=== PATIENT | female | born 1970 | race Caucasian/White ===

== ENCOUNTER 2020-04-07 11:53 | Emergency (ER) | payer OTHER, SELFPAY ==
[2020-04-07] VITALS (17 sets, daily range): BP systolic 138–175; BP diastolic 86–116; PULSE 86–107; RESP 14–41; TEMP 36.6; O2SAT 99–100
--- NOTE | 2020-04-07 12:13 | ECG_ITS ---
Measurements Intervals [place] Rate: 102 P: -13 [place]: 147 QRS: 2 QRSD: 88 T: 3 QT: 345 QTc: 451 Interpretive Statements SINUS TACHYCARDIA DELAYED PRECORDIAL R/S TRANSITION BORDERLINE T WAVE ABNORMALITY- INFERIOR LEADS BASELINE ARTIFACT- I, II, AVR BORDERLINE ECG Electronically Signed On 04-07-2020 14:04:54 [employer] by You Ndiaye D.O.
--- NOTE | 2020-04-07 12:26 | ED.OVERDOSE ---
HPI - Overdose General Chief Complaint: Overdose <Renato Sherman MD - Last Filed: 04/08/20 14:40> Stated Complaint: OD <Renato Sherman MD - Last Filed: 04/08/20 14:40> Time Seen by Provider: 04/07/20 12:06 <Renato Sherman MD - Last Filed: 04/08/20 14:40> History of Present Illness HPI Narrative: 49 yo female presents to the ED for an intentional overdose. She reports that she was in an argument with her and she just wanted the argument to end and go to sleep. She says that she took a handful of benadryl. She is not able to further quantify. She reports mild intermittent nausea since that time. She denies any other symptoms. She denies trying to harm herself. <Renato Sherman MD - Last Filed: 04/08/20 14:40> Related Data Allergies/Adverse Reactions: Allergies Allergy/AdvReac Type Severity Reaction Status Date / Time Penicillins Allergy Mild Unknown Verified 04/07/20 18:50 ampicillin Allergy Unknown Unknown Verified 04/07/20 18:50 codeine Allergy Unknown Unknown Verified 04/07/20 18:50 <Renato Sherman MD - Last Filed: 04/08/20 14:40> Review of Systems Review of Systems: All systems reviewed & are unremarkable except as noted in HPI and below <Renato Sherman MD - Last Filed: 04/08/20 14:40> Constitutional: Constitutional: Denies fever(s) <Renato Sherman MD - Last Filed: 04/08/20 14:40> Eyes: Eyes: Reports no additional eye complaints <Renato Sherman MD - Last Filed: 04/08/20 14:40> ENT: Denies dizziness <Renato Sherman MD - Last Filed: 04/08/20 14:40> Cardiovascular: Cardiovascular: Denies chest pain <Renato Sherman MD - Last Filed: 04/08/20 14:40> Respiratory: Respiratory: Denies dyspnea <Renato Sherman MD - Last Filed: 04/08/20 14:40> Gastrointestinal: Gastrointestinal: Denies abdominal pain and Reports nausea <Renato Sherman MD - Last Filed: 04/08/20 14:40> Genitourinary: Genitourinary: Reports no additional female genitourinary complaints <Renato Sherman MD - Last Filed: 04/08/20 14:40> Neurologic: Denies confusion and Denies weakness <Renato Sherman MD - Last Filed: 04/08/20 14:40> Psychiatric: Psychiatric: Denies homicidal ideation and Denies suicidal ideation <Renato Sherman MD - Last Filed: 04/08/20 14:40> [facility] Past Medical History Medical History: Medical History Healthy female adult <Renato Shreman MD - Last Filed: 04/08/20 14:40> Family History Family History: Family History Grandparent Family history of kidney disease Carcinoma of colon Family history of coronary artery disease Father Hypertension Other Family history of cardiovascular disease <Renato Sherman MD - Last Filed: 04/08/20 14:40> Social History Social History: Social History Smoking status: Current every day smoker Second hand tobacco smoke exposure: Yes Alcohol intake: current <Renato Sherman MD - Last Filed: 04/08/20 14:40> Exam Const: General: healthy appearing, no acute distress and alert <Renato Sherman MD - Last Filed: 04/08/20 14:40> Orientation/consciousness: patient oriented x3 <Renato Sherman MD - Last Filed: 04/08/20 14:40> HENMT: Head: normal to inspection <Renato Sherman MD - Last Filed: 04/08/20 14:40> Eyes: Pupils: Equal, round and reactive pupils present <Renato Sherman MD - Last Filed: 04/08/20 14:40> EOM: EOMs intact bilaterally <Renato Sherman MD - Last Filed: 04/08/20 14:40> Neck: Neck: normal visual inspection and no lymphadenopathy <Renato Sherman MD - Last Filed: 04/08/20 14:40> Chest: Chest palpation & inspection: no tenderness <Renato Sherman MD - Last Filed: 04/08/20 14:40> Resp: Effort & Inspection: normal respiratory e
--- NOTE | 2020-04-07 12:40 | PC.NURSE ---
SPOKE WITH GREYSON AT [facility] POISON CONTROL WHO WANTS US TO DO EKG, LABS, CARDIAC MONITORING. 10MG/KG UP TO 700MG MAX FOR TOXICITY. SEIZURE PRECAUTIONS ALSO RECOMMENDED.
[2020-04-07 13:05] LABS: Basophils Percent Auto 0.3 % (0.2-1.2); Eosinophils Percent Auto 0.1 % (0-4.4); Hematocrit 39.8 % (37.0-47.0); Hemoglobin 13.3 g/dL (12.0-15.0); Immature Granulocyte Absolute 0.02 K/mm3 (0.00-0.031); Immature Granulocyte Percent A 0.2 % (0-0.5); Lymphocytes Absolute Auto 1.56 K/mm3 (0.9-3.2); Mean Corpuscular HGB Conc 33.4 g/dl (32-36); Mean Corpuscular Hemoglobin 30.7 pg (26-34); Mean Corpuscular Volume 91.9 fl (80-100); Mean Platelet Volume 10.7 fl (7.4-10.4); Monocytes Absolute Auto 0.7 K/mm3 (0.1-0.6); Monocytes Percent Auto 7.5 % (2.6-8.5); Neutrophils Absolute Auto 6.4 K/mm3 (1.3-6.7); Neutrophils Percent Auto 73.9 % (45.5-73.1); Platelet Count Result 320 k/mm3 (150-375); Red Blood Count 4.33 M/mm3 (4.2-5.4); Red Cell Distribution Width 12.9 % (11.5-14.5); White Blood Count 8.7 K/mm3 (4.5-10.0)
[2020-04-07 13:09] LABS: Add Urine Microscopic? YES; Appearance Urine Clear (Clear); Bacteria Urine Trace /hpf; Bilirubin Urine Negative (Negative); Blood Urine 2+ (Negative); Color Urine Yellow (Yellow); Glucose Urine UA Negative (Negative); Ketones Urine Negative (Negative); Leukocyte Esterase Ur Trace LEU/UL (Negative); Mucus Urine Rare /lpf; Nitrate Urine Negative (Negative); Protein Urine 1+ mg/dL (Negative); Specific Grav Ur 1.017 (1.001-1.035); Squamous Epithelial Cell Urine Few /hpf (Few); Urobilinogen Urine Negative mg/dL (<2.0); WBC Urine 31-50 /hpf
[2020-04-07] MEDS: SODIUM CHLORIDE 0.9% IV 1,000 ML 999 ML IV CONT (13:10)
[2020-04-07] MEDS: LORazepam INJ (*CRX) 2 MG/ML VIAL 0.5 MG IV PUSH (13:10)
[2020-04-07 13:14] LABS: Acetaminophen < 10 ug/mL (10-30); Ethanol < 10 mg/dL (<10); Salicylate < 1.0 mg/dL (2-20)
[2020-04-07 13:16] LABS: Alanine Aminotransferase 6 U/L (4-35); Albumin Level 4.1 g/dL (3.5-5.1); Alkaline Phosphatase 62 U/L (38-126); Anion Gap 7 mmol/L (8-16); Aspartate Amino Transferase 24 U/L (14-36); Bilirubin,Total 0.7 mg/dL (0.2-1.3); Blood Urea Nitrogen 13 mg/dL (7-17); Carbon Dioxide 29 mmol/L (22-30); Chloride 102 mmol/L (98-107); Estimated CRCL calculation 80 ml/min; Estimated Glomerular Filt Rate > 60; Glucose 97 mg/dL (65-105); Potassium 3.6 mmol/L (3.4-5.0); Sodium 138 mmol/L (137-145)
[2020-04-07 13:21] LABS: Barbiturate Screen Urine Negative (Negative); Benzodiazepines Screen Urine Negative (Negative)
[2020-04-07 13:34] LABS: Cannabinoid Screen Urine Negative (Negative); Cocaine Screen Urine Negative (Negative); Methadone Screen Urine Negative (Negative); Opiate Screen Urine Negative (Negative); Phencyclidine Screen Urine Negative (Negative)
[2020-04-07 13:59] LABS: Amphetamine Screen Urine Positive (Negative)
--- NOTE | 2020-04-07 14:49 | PC.NURSE ---
POISON CONTROL CALLED FOR UPDATE OF PT.
--- NOTE | 2020-04-07 18:55 | PC.NURSE ---
PT NOTED TO WALK OUT OF ROOM INTO WAITING ROOM. I FOLLOWED PT OUT AND REDIRECTED HER TO THE ROOM. SHE STATED THAT WE WERE HOLDING HER AGAINST HER RIGHTS. I IMFORMED HER THAT DUE TO TAKING THE MEDS SHE STILL NEEDS TO BE EVALUATED BY CRISIS PRIOR TO HER LEAVING. SHE SAID THAT SOMEONE TOLD HER THAT SHE WAS MEDICALLY CLEARED. SHE WAS INFORMED THAT WAS POISON CONTROL AND CRISIS STILL NEEDS TO FORMALLY EVALUATE HER. UNDERSTANDING WAS VERBALIZED AND PT REMAINS COOPERATIVE. AWAITING CRISIS WHO IS IN DEPARTMENT CURRENTLY SEEING OTHER PATIENTS BUT WILL SEE HER REJI
== END 2020-04-07 21:30 | disposition home or self-care (01) ==
PROVIDERS: Emergency Medicine; Emergency Provider Emergency Medicine; PCP Emergency Medicine
DX: F32.9 Major depressive disorder, single episode, unspecified (principal)
CPT/HCPCS: 36415; 80053; 80307; 81001; 81025; 84443; 85025; 87077; 87086; 87088; 93005; 96361; 96374; 99284; J2060; J7030

== ENCOUNTER 2020-04-26 05:28 | Emergency (ER) | payer OTHER, SELFPAY ==
[2020-04-26 05:34] VITALS: BP 163/95; PULSE 67; RESP 16; TEMP 36.1; O2SAT 99
--- NOTE | 2020-04-26 06:17 | ECG_ITS ---
Measurements Intervals [place] Rate: 68 P: -29 SC: 141 QRS: 37 QRSD: 96 T: 31 QT: 396 QTc: 423 Interpretive Statements SINUS OR ECTOPIC ATRIAL RHYTHM DELAYED PRECORDIAL R/S TRANSITION BASELINE ARTIFACT- I, III, AVR, AVL, AVF, V2 BORDERLINE ECG Electronically Signed On 04-26-2020 7:12:39 CDT by You Ndiaye D.O.
--- NOTE | 2020-04-26 06:21 | ED.GENADULT ---
HPI - General Adult General Chief complaint: Dizziness Stated complaint: DIZZINESS X3D Time Seen by Provider: 04/26/20 06:08 History of Present Illness HPI narrative: Patient is a 49-year-old female who presents to the emergency department with chief complaint of dizziness. Patient reports for the last 3 days she has been having episodes where she has a rotational symptom in her head. Patient states is worse with movement and improved with rest. Patient reports she does have 2 teeth in her upper molars that are loose and also are fractured. Patient reports she has not seen a dentist in some time. The patient also reports that yesterday she had an episode of abdominal discomfort which she described as all over her abdomen but subsequently has improved that she is not having pain in her abdomen at this point. Patient denies nausea vomiting denies fever denies chills denies diarrhea Related Data Allergies Allergy/AdvReac Type Severity Reaction Status Date / Time Penicillins Allergy Mild Unknown Verified 04/26/20 05:37 ampicillin Allergy Unknown Unknown Verified 04/26/20 05:37 codeine Allergy Unknown Unknown Verified 04/26/20 05:37 Review of Systems Review of Systems: Narrative: A 10 system review of systems was completed on the patient and is negative except for what is stated in the HPI. Nursing and ancillary documentation was reviewed. [facility] Past Medical History Medical History Healthy female adult Family History Family History Grandparent Family history of kidney disease Carcinoma of colon Family history of coronary artery disease Father Hypertension Other Family history of cardiovascular disease Social History Social History Smoking status: Current every day smoker Second hand tobacco smoke exposure: Yes Alcohol intake: current Exam Narrative: Exam Narrative: GENERAL: Well-appearing, well-nourished, and in no acute distress. HEAD: Normocephalic, atraumatic. EYES: PERRLA and EOMI. ENT: Nares clear, no rhinorrhea or epistaxis. Mucous membranes moist. Oropharynx there is gross decay of 2 upper molars on the left NECK: Supple. CHEST: Clear to auscultation. No respiratory distress. HEART: Regular rate and rhythm. No murmur heard. Normal peripheral pulses. ABDOMEN: Soft, nontender, nondistended, normal active bowel sounds. EXTREMITIES: Normal range of motion. No edema. SKIN: Warm, dry, no rash. NEURO: No focal deficits. Alert and oriented x3. PSYCH: Normal mood and affect. Course Course Emergency Course: EKG is sinus rhythm rate of [address] elevation no ST depression Vital Signs Vital signs: Vital Signs Temperature 36.1 C L 04/26/20 05:34 Pulse Rate 67 04/26/20 05:34 Respiratory Rate 16 04/26/20 05:34 Blood Pressure 163/95 H 04/26/20 05:34 Pulse Oximetry 99 04/26/20 05:34 Temperature 36.1 C L 04/26/20 05:34 Pulse Rate 73 04/26/20 06:43 Respiratory Rate 16 04/26/20 05:34 Blood Pressure 186/99 H 04/26/20 06:43 Pulse Oximetry 99 04/26/20 05:34 Medical Decision Making Vital Signs Vital Signs: Vital Signs Temperature 36.1 C L 04/26/20 05:34 Pulse Rate 67 04/26/20 05:34 Respiratory Rate 16 04/26/20 05:34 Blood Pressure 163/95 H 04/26/20 05:34 Pulse Oximetry 99 04/26/20 05:34 Temperature 36.1 C L 04/26/20 05:34 Pulse Rate 73 04/26/20 06:43 Respiratory Rate 16 04/26/20 05:34 Blood Pressure 186/99 H 04/26/20 06:43 Pulse Oximetry 99 04/26/20 05:34 Lab Data Result diagrams: 04/26/20 06:26 04/26/20 06:26 Labs: Lab Results 04/26/20 04/26/20 04/26/20 Range/Units 06:26 06:26 06:26 WBC 7.3 (4.5-10.0) K/mm3 RBC 4.82 (4.2-5.4) M/mm3 Hgb 14.9 (12.0-15.0) g/dL Hct 45.5 (37.0-47.0) % MCV 94
[2020-04-26] MEDS: SODIUM CHLORIDE 0.9% IV 1,000 ML 999 ML IV CONT (06:33)
[2020-04-26] MEDS: MECLIZINE HCL 25 MG TABLET PO (06:34)
[2020-04-26] MEDS: ONDANSETRON INJ 4 MG/2 ML VIAL IV PUSH (06:34)
[2020-04-26 06:39] VITALS: BP 175/94; PULSE 66
[2020-04-26 06:41] VITALS: BP 187/101; PULSE 67
[2020-04-26 06:43] VITALS: BP 186/99; PULSE 73
[2020-04-26 06:47] LABS: Basophils Absolute Auto 0.1 K/mm3 (0.0-0.1); Basophils Percent Auto 0.7 % (0.2-1.2); Eosinophils Absolute Auto 0.1 K/mm3 (0-0.3); Eosinophils Percent Auto 1.6 % (0-4.4); Hematocrit 45.5 % (37.0-47.0); Hemoglobin 14.9 g/dL (12.0-15.0); Immature Granulocyte Absolute 0.02 K/mm3 (0.00-0.031); Immature Granulocyte Percent A 0.3 % (0-0.5); Lymphocytes Absolute Auto 2.26 K/mm3 (0.9-3.2); Lymphocytes Percent Auto 30.8 % (18.3-44.2); Mean Corpuscular HGB Conc 32.7 g/dl (32-36); Mean Corpuscular Hemoglobin 30.9 pg (26-34); Mean Corpuscular Volume 94.4 fl (80-100); Mean Platelet Volume 11.1 fl (7.4-10.4); Monocytes Absolute Auto 0.6 K/mm3 (0.1-0.6); Monocytes Percent Auto 8.2 % (2.6-8.5); Neutrophils Absolute Auto 4.3 K/mm3 (1.3-6.7); Neutrophils Percent Auto 58.4 % (45.5-73.1); Platelet Count Result 307 k/mm3 (150-375); Red Blood Count 4.82 M/mm3 (4.2-5.4); Red Cell Distribution Width 12.6 % (11.5-14.5); White Blood Count 7.3 K/mm3 (4.5-10.0)
[2020-04-26 06:50] LABS: Lactic Acid Reflex 0.9 mmol/L (0.7-2.1)
[2020-04-26 07:02] LABS: Alanine Aminotransferase 7 U/L (4-35); Albumin Level 4.1 g/dL (3.5-5.1); Alkaline Phosphatase 60 U/L (38-126); Anion Gap 4 mmol/L (8-16); Aspartate Amino Transferase 19 U/L (14-36); Bilirubin,Total 0.5 mg/dL (0.2-1.3); Blood Urea Nitrogen 20 mg/dL (7-17); Carbon Dioxide 35 mmol/L (22-30); Chloride 101 mmol/L (98-107); Estimated CRCL calculation 71 ml/min; Estimated Glomerular Filt Rate > 60; Glucose 107 mg/dL (65-105); Lipase 286 U/L (23-300); Potassium 3.9 mmol/L (3.4-5.0); Sodium 140 mmol/L (137-145)
[2020-04-26 07:09] LABS: Add Urine Microscopic? YES; Amorphous Sediment Urine Few; Appearance Urine Cloudy (Clear); Bilirubin Urine Negative (Negative); Blood Urine Negative (Negative); Color Urine Yellow (Yellow); Glucose Urine UA Negative (Negative); Ketones Urine Negative (Negative); Leukocyte Esterase Ur Negative LEU/UL (Negative); Mucus Urine Rare /lpf; Nitrate Urine Negative (Negative); Protein Urine Negative (Negative); RBC Urine 0-2 /hpf (0-2); Specific Grav Ur 1.011 (1.001-1.035); Squamous Epithelial Cell Urine Rare /hpf (Few); Urobilinogen Urine Negative mg/dL (<2.0)
--- NOTE | 2020-04-28 07:17 | PC.NURSE ---
Pt received 1000 ml of NS that was completed at 716 LATE ENTRY
== END 2020-04-26 07:23 | disposition home or self-care (01) ==
PROVIDERS: Emergency Provider Emergency Medicine; PCP Emergency Medicine
DX: H81.10 Benign paroxysmal vertigo, unspecified ear (principal); F17.200 Nicotine dependence, unspecified, uncomplicated; R94.31 Abnormal electrocardiogram [ECG] [EKG]
CPT/HCPCS: 80053; 81001; 83605; 83690; 85025; 93005; 96361; 96374; 99284; A9270; J2405; J7030

== ENCOUNTER 2020-06-06 12:56 | Emergency (ER) | payer OTHER, SELFPAY ==
--- NOTE | 2020-06-06 13:14 | ED.FEMALEGU ---
HPI - Female Genitourinary General Chief complaint: Urogenital-Female Stated complaint: vaginal odor/discharge Time Seen by Provider: 06/06/20 13:14 Source: patient and RN notes reviewed Mode of arrival: ambulatory Limitations: no limitations History of Present Illness HPI Narrative: 49-year-old female presents to the [facility] with complaints of abnormal vagina odor and white discharge. Patient reports that she has been on 2 rounds of antibiotics in the last couple months. And states she was called in a pill for yeast infection and it has not gotten any better. Has a history of bacterial vaginitis and states it feels exactly the same. Denies any chest pain or abdominal pain. No nausea vomiting or diarrhea. Denies any fevers. No urinary symptoms. Related Data Home Medications Medication Instructions Recorded Confirmed lisinopril 20 mg DAILY 06/06/20 06/06/20 sertraline 50 mg DAILY 06/06/20 06/06/20 Allergies Allergy/AdvReac Type Severity Reaction Status Date / Time Penicillins Allergy Mild Unknown Verified 04/26/20 05:37 ampicillin Allergy Unknown Unknown Verified 04/26/20 05:37 codeine Allergy Unknown Unknown Verified 04/26/20 05:37 Review of Systems Review of Systems: Narrative: CONSTITUTIONAL: Denies fever, chills, or sweats. CARDIOVASCULAR: Denies chest pain, palpitations, or edema. RESPIRATORY: Denies cough or dyspnea. GASTROINTESTINAL: Denies abdominal pain, nausea, vomiting, or diarrhea. GENITOURINARY: Denies dysuria or hematuria. White vaginal discharge. SKIN: Denies rash or itching. MUSCULOSKELETAL: Denies back pain, joint pain, or myalgia. NEUROLOGIC: Denies headache, numbness, or weakness. PSYCHIATRIC: Denies anxiety or depression. All other systems reviewed are negative, except as documented in HPI. [facility] Past Medical History Medical History Healthy female adult Family History Family History Grandparent Family history of kidney disease Carcinoma of colon Family history of coronary artery disease Father Hypertension Other Family history of cardiovascular disease Social History Social History Smoking status: Current every day smoker Second hand tobacco smoke exposure: Yes Alcohol intake: current Comments At the time of my signature, I reviewed and agree with the nursing past medical, surgical, social, and family history. There is no relevant family history pertinent to the patient complaint. Exam Narrative: Exam Narrative: GENERAL: This is a well-nourished, well-developed patient, in no apparent distress. HEAD: normocephalic, atraumatic. NECK: Neck supple, non-tender without lymphadenopathy CARDIOVASCULAR: Regular rate and rhythm without murmurs, gallops, or rubs. RESPIRATORY: Clear to auscultation. Breath sounds equal bilaterally. No wheezes, rales, or rhonchi. GASTROINTESTINAL: Abdomen soft, non-tender, nondistended. Bowel sounds are active. No hepato-splenomegaly, or palpable masses. No guarding. SKIN: warm, Dry, intact with no suspicious lesions or rash, good texture and turgor. NEURO: awake, alert, and oriented to person, place and time. There were no obvious focal neurologic abnormalities. EXTREMITIES: No joint tenderness, effusion, or edema noted. BACK: Nontender without deformity. No CVA tenderness. Course Course Emergency Course: Patient is a very good historian. Has a history of bacterial vaginitis. Has been on 2 rounds of antibiotics in the last couple of months. Has treated for yeast infection states is not clearing up. Patient reports that it feels like bacterial vaginitis. Declined a vaginal exam at this time. Encourage patient to follow-up with her [employer] provider due to the fact that she has not had a period in 2 months, patient has a history of a tubal ligation. Vital Signs Vital signs: Vital Signs Te
[2020-06-06 13:28] VITALS: BP 110/69; PULSE 92; RESP 16; TEMP 37; O2SAT 100
== END 2020-06-06 13:33 | disposition home or self-care (01) ==
PROVIDERS: Emergency Provider Nurse Practitioner; PCP Emergency Medicine
DX: N76.0 Acute vaginitis (principal); F17.200 Nicotine dependence, unspecified, uncomplicated
CPT/HCPCS: 99211; G0463

== ENCOUNTER 2020-06-16 18:16 | Emergency (ER) | payer OTHER, SELFPAY ==
--- NOTE | 2020-06-16 18:38 | ED.FEMALEGU ---
HPI - Female Genitourinary General Chief complaint: Urogenital-Female Stated complaint: uti Time Seen by Provider: 06/16/20 18:38 Source: patient and RN notes reviewed Mode of arrival: ambulatory Limitations: no limitations History of Present Illness HPI Narrative: 49-year-old female presents to the [facility] with complaints of vaginal discharge. Patient was seen over a week ago and treated for bacterial vaginitis. Prior to that patient had been on oral antibiotics and treated for yeast infection. Patient states she is doing a little better but still having some abnormal discharge and burning. Now is concerned for an STD. Denies any abdominal pain or chest pain. No nausea vomiting or diarrhea. Related Data Home Medications Medication Instructions Recorded Confirmed lisinopril 20 mg DAILY 06/06/20 06/16/20 sertraline 50 mg DAILY 06/06/20 06/16/20 Allergies Allergy/AdvReac Type Severity Reaction Status Date / Time Penicillins Allergy Mild Unknown Verified 06/16/20 18:56 ampicillin Allergy Unknown Unknown Verified 06/16/20 18:56 codeine Allergy Unknown Unknown Verified 06/16/20 18:56 Review of Systems Review of Systems: Narrative: CONSTITUTIONAL: Denies fever, chills, or sweats. EYES: Denies visual changes, redness, or discharge. ENT: Denies rhinorrhea, congestion, sore throat, or otalgia. CARDIOVASCULAR: Denies chest pain, palpitations, or edema. RESPIRATORY: Denies cough or dyspnea. GASTROINTESTINAL: Denies abdominal pain, nausea, vomiting, or diarrhea. GENITOURINARY: Denies dysuria or hematuria. Vaginal discharge SKIN: Denies rash or itching. MUSCULOSKELETAL: Denies back pain, joint pain, or myalgia. NEUROLOGIC: Denies headache, numbness, or weakness. PSYCHIATRIC: Denies anxiety or depression. All other systems reviewed are negative, except as documented in HPI. [facility] Past Medical History Medical History Healthy female adult Family History Family History Grandparent Family history of kidney disease Carcinoma of colon Family history of coronary artery disease Father Hypertension Other Family history of cardiovascular disease Social History Social History Smoking status: Current every day smoker Second hand tobacco smoke exposure: Yes Alcohol intake: current Gender identity (if verbalized by the patient): Female Comments At the time of my signature, I reviewed and agree with the nursing past medical, surgical, social, and family history. There is no relevant family history pertinent to the patient complaint. Exam Narrative: Exam Narrative: GENERAL: This is a well-nourished, well-developed patient, in no apparent distress. HEAD: normocephalic, atraumatic. EYES: PERRL. Sclera clear/white. Vision is grossly intact. EARS: External ears normal, auditory canals clear and without drainage, TMs normal without perforation. Hearing grossly intact. NOSE: External nose normal with no obvious nasal discharge, nares without redness, no rhinorrhea. THROAT: Mucous membranes moist, posterior pharynx clear. NECK: Neck supple, non-tender without lymphadenopathy, masses or thyromegaly. CARDIOVASCULAR: Regular rate and rhythm without murmurs, gallops, or rubs. RESPIRATORY: Clear to auscultation. Breath sounds equal bilaterally. No wheezes, rales, or rhonchi. GASTROINTESTINAL: Abdomen soft, non-tender, nondistended. SKIN: warm, Dry, intact with no suspicious lesions or rash, good texture and turgor. NEURO: awake, alert, and oriented to person, place and time. There were no obvious focal neurologic abnormalities. EXTREMITIES: No joint tenderness, effusion, or edema noted. BACK: Nontender without deformity. : General: Yes no CVA tenderness External Female Exam: normal external appearance Speculum Exam - Vagina: abnormal appearance of the vagina, abnormal vaginal di
[2020-06-16 18:44] VITALS: BP 147/77; PULSE 108; RESP 16; TEMP 36.9; O2SAT 99
== END 2020-06-16 19:22 | disposition home or self-care (01) ==
PROVIDERS: Emergency Provider Nurse Practitioner; PCP Emergency Medicine
DX: N89.8 Other specified noninflammatory disorders of vagina (principal); F17.200 Nicotine dependence, unspecified, uncomplicated
CPT/HCPCS: 87070; 87077; 87491; 87591; 87661; 99214; G0463

== ENCOUNTER 2021-01-16 12:34 | Emergency (ER) | payer OTHER, SELFPAY ==
[2021-01-16 12:39] VITALS: BP 142/90; PULSE 79; RESP 16; TEMP 36.8; O2SAT 99
--- NOTE | 2021-01-16 13:03 | ED.GENADULT ---
HPI - General Adult General Chief complaint: Dental/Oral Stated complaint: BUMP ON GUMS Source: patient Mode of arrival: ambulatory Limitations: no limitations History of Present Illness HPI narrative: 50 y/o female. PMHx: Non contributory. Presents to [facility] today with acute complaints of RT lower dental pain, infection, worsening > >the past 3 days. She reports 'throbbing' pain, refractory to OTC remedies, and now has developed a bump on her gumline. No fever. No dental or oral trauma. She is not currently established with Dentistry. No additional acute c/o illness upon PE. Related Data Allergies Allergy/AdvReac Type Severity Reaction Status Date / Time Penicillins Allergy Mild Unknown Verified 01/16/21 12:38 ampicillin Allergy Unknown Unknown Verified 01/16/21 12:38 codeine Allergy Unknown Unknown Verified 01/16/21 12:38 Review of Systems Review of Systems: CONSTITUTIONAL: Denies fever, chills, sweats. EYES: Denies visual changes, redness, discharge. ENT: Denies rhinorrhea, congestion, sore throat, otalgia. Positive Dental pain. CARDIOVASCULAR: Denies chest pain, palpitations, edema. RESPIRATORY: Denies dyspnea, wheezing, cough GASTROINTESTINAL: Denies abdominal pain, nausea, vomiting, diarrhea. GENITOURINARY: Denies dysuria, hematuria, abnormal discharge SKIN: Denies rash or itching. MUSCULOSKELETAL: Denies acute back pain, joint pain, or myalgia. NEUROLOGIC: Denies numbness, or focal weakness. PSYCHIATRIC: Denies anxiety or depression. All systems reviewed & are unremarkable except as noted in HPI and below PMFSH Past Medical History Medical History Healthy female adult Family History Family History Grandparent Family history of kidney disease Carcinoma of colon Family history of coronary artery disease Father Hypertension Other Family history of cardiovascular disease Social History Social History Smoking status: Current every day smoker Second hand tobacco smoke exposure: Yes Alcohol intake: current Gender identity (if verbalized by the patient): Female Exam Narrative: GENERAL: This is a well-nourished, well-developed adult, in no apparent distress. HEAD: normocephalic, atraumatic. EYES: PERRL. Sclera clear/white. EARS: External ears normal, auditory canals clear and without drainage, TMs normal. NOSE: External nose normal. Positive Rhinorrhea, no obstruction, nares patent. MOUTH: With mild soft tissue swelling surrounding RT lower molar #31. No obvious fluctuance to site. There is dental decay. THROAT: Mucous membranes moist, posterior pharynx clear. No exudates. NECK: Neck supple, non-tender without lymphadenopathy, masses or thyromegaly. CARDIOVASCULAR: Regular rate and rhythm without murmurs, gallops, or rubs. RESPIRATORY: Clear to auscultation. Breath sounds equal bilaterally. No wheezes, rales, or rhonchi. GASTROINTESTINAL: Abdomen soft, non-tender, nondistended. Bowel sounds are active. No guarding. SKIN: warm, intact with no suspicious lesions or rash, good texture and turgor. NEURO: Alert, active, and age appropriate. No focal neurologic deficits. Course Vital Signs Vital signs: Vital Signs Temperature 36.8 C 01/16/21 12:39 Pulse Rate 79 01/16/21 12:39 Respiratory Rate 16 01/16/21 12:39 Blood Pressure 142/90 H 01/16/21 12:39 Pulse Oximetry 99 01/16/21 12:39 Temperature 36.8 C 01/16/21 12:39 Pulse Rate 79 01/16/21 12:39 Respiratory Rate 16 01/16/21 12:39 Blood Pressure 142/90 H 01/16/21 12:39 Pulse Oximetry 99 01/16/21 12:39 Medical Decision Making [facility] Narrative Medical decision making narrative: -Dental infection, no obvious abscess or fluctuance. -No trauma. -ATB as directed, NSAID PRN. Short course [place] for moderate to sever
== END 2021-01-16 13:09 | disposition home or self-care (01) ==
PROVIDERS: Emergency Provider Nurse Practitioner Adult Health
DX: K02.9 Dental caries, unspecified (principal); F17.200 Nicotine dependence, unspecified, uncomplicated
CPT/HCPCS: 99213; G0463

== ENCOUNTER 2021-04-02 12:01 | Emergency (ER) | payer OTHER, SELFPAY ==
[2021-04-02 12:10] VITALS: BP 150/95; PULSE 93; RESP 16; TEMP 36.2; O2SAT 100
--- NOTE | 2021-04-02 12:10 | ED.FEMALEGU ---
HPI - Female Genitourinary General Chief complaint: Urogenital-Female Stated complaint: Urinary pain Source: patient and RN notes reviewed Mode of arrival: ambulatory Limitations: no limitations History of Present Illness HPI Narrative: 50 y/o female presented for c/o white vaginal discharge worsening over the past 2 weeks. States it is worse after intercourse. Denies significant itching or odor. Denies concern for STD. Denies urinary frequency, dysuria, urgency, hematuria, abdominal pain, CVA tenderness. No recent abx. Endorses hx yeast infections and BV. Related Data Allergies Allergy/AdvReac Type Severity Reaction Status Date / Time Penicillins Allergy Mild Unknown Verified 04/02/21 12:10 ampicillin Allergy Unknown Unknown Verified 04/02/21 12:10 codeine Allergy Unknown Unknown Verified 04/02/21 12:10 Review of Systems Review of Systems: CONSTITUTIONAL: Denies body aches, fever, chills, or sweats. CARDIOVASCULAR: Denies chest pain, palpitations, or edema. RESPIRATORY: Denies cough or dyspnea. GASTROINTESTINAL: Denies abdominal pain, nausea, vomiting, or diarrhea. GENITOURINARY: endorses white vaginal discharge, denies itching, dysuria, frequency, urgency, hematuria, flank pain SKIN: Denies rash, itching, or wounds. MUSCULOSKELETAL: Denies back pain or myalgia. [facility] Past Medical History Medical History Healthy female adult Family History Family History Grandparent Family history of kidney disease Carcinoma of colon Family history of coronary artery disease Father Hypertension Other Family history of cardiovascular disease Social History Social History Smoking status: Current every day smoker Second hand tobacco smoke exposure: Yes Alcohol intake: current Gender identity (if verbalized by the patient): Female Comments At time of signature, I have reviewed and agree with nursing past medical, surgical, social and family history unless otherwise noted. Please see nursing chart for further information. There is no relevant family history pertinent to the presenting complaint Exam Narrative: GENERAL: Well-appearing and in no acute distress. HEAD: Normocephalic EYES: EOMI. . ENT: Mucous membranes pink and moist. NECK: Normal AROM. Supple. CHEST: No respiratory distress. Clear to auscultation. HEART: Regular rate and rhythm. ABDOMEN: Soft, nontender, nondistended, normal active bowel sounds. No CVA tenderness MUSCULOSKELETAL: No bony tenderness. SKIN: Warm, dry, no rash. NEURO: No focal deficits. Alert and oriented x3. Gait steady. PSYCH: Normal affect. No signs of depression or anxiety. Course Course Emergency Course: Rx for fluconazole as yeast infection is suspected. 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 Rx for boyfriend given for fluconazole, who accompanied pt. Patient is aware of diagnosis, understands and agrees to treatment plan. Anticipatory guidance given. Patient agrees to follow-up as directed and is aware of reasons to seek care at the emergency department. Portions of this record may have been created with voice recognition software Level of Care: Express Care Visit Vital Signs Vital signs: Vital Signs Temperature 97.1 F L 04/02/21 12:10 Pulse Rate 93 04/02/21 12:10 Respiratory Rate 16 04/02/21 12:10 Blood Pressure 150/95 H 04/02/21 12:10 Pulse Oximetry 100 04/02/21 12:10 Temperature 97.1 F L 04/02/21 12:10 Pulse Rate 93 04/02/21 12:10 Respiratory Rate 16 04/02/21 12:10 Blood Pressure 150/95 H 04/02/21 12:10 Pulse Oximetry 100 04/02/21 12:10 Reviewed MDM - Female Genitourinary Differential Diagnosis Differential diagnosis: Likely urinary tract infection, bacterial vaginosis, cervicitis and va
== END 2021-04-02 12:36 | disposition home or self-care (01) ==
PROVIDERS: Emergency Provider Nurse Practitioner Family
DX: N89.8 Other specified noninflammatory disorders of vagina (principal); F17.200 Nicotine dependence, unspecified, uncomplicated
CPT/HCPCS: 99213; G0463

== ENCOUNTER 2022-01-25 03:59 | Emergency (ER) | payer OTHER, MEDICAID, SELFPAY ==
[2022-01-25 04:07] VITALS: BP 146/90; PULSE 90; RESP 16; TEMP 36.4; O2SAT 96
[2022-01-25] MEDS: LIDOCAINE HCL 1% PF 30 ML VIAL 10 ML INFILTRATE (04:37)
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
[2022-01-25] MEDS: TETANUS,DIPHTHERIA,AC PERTUSSIS ADULT (0.5 ML) BOOSTRIX IM (05:21)
[2022-01-25 05:46] VITALS: BP 139/79; PULSE 67; RESP 14; O2SAT 99
== END 2022-01-25 05:50 | disposition home or self-care (01) ==
PROVIDERS: Emergency Provider Emergency Medicine
DX: S01.511A Laceration without foreign body of lip, initial encounter (principal); Z23 Encounter for immunization; F17.200 Nicotine dependence, unspecified, uncomplicated; W22.8XXA Striking against or struck by other objects, initial encounter
CPT/HCPCS: 12011; 90471; 90715; 99282

== ENCOUNTER 2023-07-02 00:29 | Emergency (ER) | payer OTHER, SELFPAY ==
--- NOTE | ~2023-07-02 | CT_ITS ---
Non-contrast CT scan of the Abdomen and Pelvis Clinical indication: Abdominal pain Technique: 2.5 mm axial scans were obtained through the abdomen and pelvis without intravenous or or al contrast. Dose reduction technique was used on this scan by utilizing automated exposure control a nd iterative reconstruction technique. The dose-length product (DLP) was 768.14 mGy-cm. Findings: Images through the lung bases reveal no abnormalities. There are punctate nonobstructing bilateral renal stones. No ureteral stone or hydronephrosis evident . The liver, spleen, pancreas, gallbladder, and adrenals appear normal. There is no aortic aneurysm. There is no evidence of bowel obstruction. Normal appendix. Images through the pelvis were performed. There is no evidence of ascites or lymphadenopathy. Urinary bladder unremarkable. No adnexal mass seen. Impression: Punctate nonobstructing bilateral renal stones. Reviewed, dictated and finalized at [facility]. Impression: Punctate nonobstructing bilateral renal stones.
[2023-07-02 00:32] VITALS: BP 170/103; PULSE 99; RESP 20; TEMP 36.6; O2SAT 100
[2023-07-02 01:09] LABS: Basophils Percent Auto 0.6 % (0.2-1.2); Eosinophils Absolute Auto 0.2 K/mm3 (0-0.3); Eosinophils Percent Auto 2.3 % (0-4.4); Hematocrit 44.2 % (37.0-47.0); Hemoglobin 14.7 g/dL (12.0-15.0); Immature Granulocyte Absolute 0.01 K/mm3 (0.00-0.031); Immature Granulocyte Percent A 0.2 % (0-0.5); Lymphocytes Absolute Auto 1.68 K/mm3 (0.9-3.2); Lymphocytes Percent Auto 26.2 % (18.3-44.2); Mean Corpuscular HGB Conc 33.3 g/dl (32-36); Mean Corpuscular Hemoglobin 30.4 pg (26-34); Mean Corpuscular Volume 91.5 fl (80-100); Mean Platelet Volume 10.1 fl (7.4-10.4); Monocytes Absolute Auto 0.5 K/mm3 (0.1-0.6); Monocytes Percent Auto 8.4 % (2.6-8.5); Neutrophils Percent Auto 62.3 % (45.5-73.1); Platelet Count Result 318 k/mm3 (150-375); Red Blood Count 4.83 M/mm3 (4.2-5.4); Red Cell Distribution Width 12.2 % (11.5-14.5); White Blood Count 6.4 K/mm3 (4.5-10.0)
[2023-07-02 01:20] LABS: Alanine Aminotransferase 10 U/L (6-35); Albumin Level 4.1 g/dL (3.5-5.1); Alkaline Phosphatase 73 U/L (38-126); Anion Gap 4 mmol/L (4-12); Aspartate Amino Transferase 22 U/L (14-36); Bilirubin,Total 0.4 mg/dL (0.2-1.3); Blood Urea Nitrogen 20 mg/dL (7-17); Calcium 9.2 mg/dL (8.4-10.2); Carbon Dioxide 31 mmol/L (22-30); Chloride 106 mmol/L (98-107); Estimated CRCL calculation 71 ml/min; Estimated Glomerular Filt Rate > 60; Glucose 118 mg/dL (65-110); Lipase 265 U/L (23-300); Potassium 3.8 mmol/L (3.4-5.0); Sodium 141 mmol/L (137-145)
--- NOTE | 2023-07-02 03:18 | ED.ABDPAIN ---
HPI - Abdominal Pain General Chief Complaint: Abdominal Pain Stated Complaint: stomach pain, no bm in 1 week Time Seen by Provider: 07/02/23 02:23 History of Present Illness HPI narrative: Patient is a 52-year-old female who presents to the emergency department this morning complaining abdominal pain and constipation the patient admits that she does get constipated frequently but denies using any stool softeners or laxatives. Patient states that sometimes she has to use her finger to disimpact herself and states that yesterday her helped her. Patient states that prior to yesterday she has not had a bowel movement for approximately 1 week. Patient admits that she did get some relief after her small bowel movement yesterday. She is currently denying any nausea or vomiting, denies any additional symptoms or concerns at this time. Related Data Allergies Allergy/AdvReac Type Severity Reaction Status Date / Time Penicillins Allergy Mild Unknown Verified 01/25/22 04:01 ampicillin Allergy Unknown Unknown Verified 01/25/22 04:01 codeine Allergy Unknown Unknown Verified 01/25/22 04:01 Review of Systems Review of Systems: All systems are reviewed and are negative unless stated otherwise in the HPI. [facility] Past Medical History Medical History Healthy female adult Family History Family History Grandparent Family history of kidney disease Carcinoma of colon Family history of coronary artery disease Father Hypertension Other Family history of cardiovascular disease Social History Social History Smoking status: Current every day smoker Second hand tobacco smoke exposure: Yes Alcohol intake: current Gender identity (if verbalized by the patient): Female Exam Narrative: General: Alert, awake, afebrile, in no acute distress. Cardiovascular: Regular rate and rhythm, no murmurs, rubs or gallops, no peripheral edema. Respiratory: Clear to auscultation bilaterally, no tachypnea, no wheezing, no rhonchi, no rubs, no respiratory distress. Abdomen: Soft, nontender, nondistended, no rebound, no guarding, no peritoneal signs. Musculoskeletal: No joint swelling or deformity, normal muscle tone. Skin: No rashes or petechia, no signs of infection. Psychiatric: Alert and oriented, normal behavior and judgment for situation. Neurological: Alert and oriented to person, place, and time. Follows all commands. No focal deficits, speech is clear and fluent. Course Vital Signs Vital signs: Vital Signs Temperature 97.9 F 07/02/23 00:32 Pulse Rate 99 07/02/23 00:32 Respiratory Rate 20 07/02/23 00:32 Blood Pressure 170/103 H 07/02/23 00:32 Pulse Oximetry 100 07/02/23 00:32 Oxygen Delivery Room Air 07/02/23 00:32 Temperature 97.9 F 07/02/23 00:32 Pulse Rate 92 07/02/23 03:30 Respiratory Rate 15 07/02/23 03:30 Blood Pressure 154/87 H 07/02/23 03:30 Pulse Oximetry 97 07/02/23 03:30 Oxygen Delivery Room Air 07/02/23 00:32 MDM - Abdominal Pain MDM Narrative Medical decision making narrative: The patient was evaluated by myself in the emergency department. History is obtained from patient who is an independent historian and physical exam was performed. External medical records were reviewed at this time. IV was established and pertinent tests were ordered. Laboratory results obtained revealing no acute process. Imaging studies obtained included CT abdomen pelvis with IV contrast which is currently pending. I did offer the a rectal exam and fecal disimpaction, however, patient declined stating that her has been ordered that that yesterday with improvement of her symptoms. Differential diagnosis considerations include constipation, fecal impaction, gastroenteritis and bowel obstruction although unlikely given t
[2023-07-02 03:30] VITALS: BP 154/87; PULSE 92; RESP 15; O2SAT 97
== END 2023-07-02 03:34 | disposition home or self-care (01) ==
PROVIDERS: Physician Assistant; Emergency Provider Emergency Medicine; PCP Family Medicine
DX: K59.00 Constipation, unspecified (principal); F17.200 Nicotine dependence, unspecified, uncomplicated
CPT/HCPCS: 36415; 74176; 80053; 83690; 85025; 99284

== ENCOUNTER 2024-01-25 16:26 | Emergency (ER) | payer OTHER, SELFPAY ==
--- NOTE | ~2024-01-25 | CT_ITS ---
EXAMINATION: CT brain wo con DATE: 01/25/2024 17:43 INDICATION: New onset paranoia and delusions. TECHNIQUE: Computed tomography (CT) of the head was performed without intravenous contrast. The mA wa s adjusted according to patient size. Iterative reconstruction technique was employed. The dose-lengt h product was 605.33 mGy-cm. COMPARISON: Head CT 05/28/2017 FINDINGS: There are old lacunar infarcts in the bilateral basal ganglia and teddy. There are scattered areas of low attenuation in the cerebral white matter, which is within normal limits for the patient 's age. There is no intracranial hemorrhage, acute infarction, or abnormal intracranial mass lesion. The ventricles are normal in size. The paranasal sinuses are clear. The orbits are normal. The mastoi d air cells are normal. IMPRESSION: 1. 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 Reviewed, dictated and finalized at location A. GER QUALITY COMPLIANCE
[2024-01-25 16:29] VITALS: BP 170/110; PULSE 113; RESP 20; TEMP 36.5; O2SAT 100
[2024-01-25 17:11] LABS: Basophils Percent Auto 0.7 % (0.2-1.2); Eosinophils Absolute Auto 0.1 K/mm3 (0-0.3); Hematocrit 40.4 % (37.0-47.0); Hemoglobin 13.8 g/dL (12.0-15.0); Immature Granulocyte Absolute 0.02 K/mm3 (0.00-0.031); Immature Granulocyte Percent A 0.4 % (0-0.5); Lymphocytes Absolute Auto 1.89 K/mm3 (0.9-3.2); Lymphocytes Percent Auto 34.4 % (18.3-44.2); Mean Corpuscular HGB Conc 34.2 g/dl (32-36); Mean Corpuscular Hemoglobin 30.7 pg (26-34); Mean Corpuscular Volume 89.8 fl (80-100); Mean Platelet Volume 10.3 fl (7.4-10.4); Monocytes Absolute Auto 0.5 K/mm3 (0.1-0.6); Monocytes Percent Auto 9.6 % (2.6-8.5); Neutrophils Absolute Auto 2.9 K/mm3 (1.3-6.7); Neutrophils Percent Auto 52.9 % (45.5-73.1); Platelet Count Result 300 k/mm3 (150-375); Red Cell Distribution Width 11.9 % (11.5-14.5); White Blood Count 5.5 K/mm3 (4.5-10.0)
[2024-01-25 17:23] LABS: Alanine Aminotransferase 9 U/L (6-35); Albumin Level 4.6 g/dL (3.5-5.1); Alkaline Phosphatase 79 U/L (38-126); Anion Gap 5 mmol/L (4-12); Aspartate Amino Transferase 32 U/L (14-36); Blood Urea Nitrogen 12 mg/dL (7-17); Calcium 9.6 mg/dL (8.4-10.2); Carbon Dioxide 28 mmol/L (22-30); Chloride 105 mmol/L (98-107); Estimated CRCL calculation 78 ml/min; Estimated Glomerular Filt Rate > 60; Glucose 100 mg/dL (65-110); Potassium 3.4 mmol/L (3.4-5.0); Sodium 138 mmol/L (137-145)
[2024-01-25 17:23] LABS: Acetaminophen < 10 ug/mL (10-30); Ethanol < 10 mg/dL (<10); Salicylate < 1.0 mg/dL (2-20)
[2024-01-25 17:53] LABS: Thyroid Stimulating Hormone 0.647 uIU/mL (0.465-4.680)
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
[2024-01-25 18:10] LABS: Add Urine Microscopic? NO; Appearance Urine Clear (Clear); Bilirubin Urine Negative (Negative); Blood Urine Negative (Negative); Color Urine Yellow (Yellow); Glucose Urine UA Negative (Negative); Ketones Urine 1+ mg/dL (Negative); Leukocyte Esterase Ur Negative LEU/UL (Negative); Nitrate Urine Negative (Negative); Protein Urine Negative (Negative); Specific Grav Ur 1.021 (1.001-1.035); Urobilinogen Urine 0.2 mg/dL (<2.0)
[2024-01-25 18:25] LABS: Barbiturate Screen Urine Negative (Negative); Benzodiazepines Screen Urine Negative (Negative)
[2024-01-25 18:32] LABS: Cannabinoid Screen Urine Negative (Negative); Cocaine Screen Urine Negative (Negative); Methadone Screen Urine Negative (Negative); Opiate Screen Urine Negative (Negative); Phencyclidine Screen Urine Negative (Negative)
[2024-01-25 18:49] LABS: Influenza A QL RT-PCR Negative (Negative); Influenza B QL RT-PCR Negative (Negative); RSV RNA, RT-PCR Negative (Negative); SARS-CoV-2 RNA PCR Negative (Negative)
[2024-01-25] MEDS: LORazepam (*CRX) 0.5 MG TABLET PO (19:12)
--- NOTE | 2024-01-25 19:16 | PC.NURSE ---
attempted to call CRISIS at [phone] and was on hold until 1904. called again at [phone] and requested psych evaluation. [facility] staff will be at ED within 2 hours.
[2024-01-25 19:23] LABS: Amphetamine Screen Urine Positive (Negative)
[2024-01-25 21:55] VITALS: RESP 20
--- OUTSIDE RECORDS SUMMARY | 2024-01-29 05:57 | XMS_ITS | Continuity of Care Document ---
Author Organization [facility] Address [address] [place] [address] Phone Care Team Providers Care Livestock Farmers Name Role Phone Osvaldo Gregg Unavailable Unavailable Advance Directives Directive Yes / No Effective Date File Name No Information Encounters Encounter Description Practice Location Reason(s) For Visit Diagnoses Date Provider Providers Copied on Encounter [facility], [id number] [place] [address] [address], [place], [place], [id number], [place] tel:[phone] [facility] No Information 0 8-200 0 Bernardsy Eddariel. [address] , [address], [place], [address], [place]. tel:[phone] Family History Family Member Type Diagnosis Age At Onset No Information Payers Payer name Insurance type Covered alliance party ID Authoriza tion(s) No Information Social History [...]
--- OUTSIDE RECORDS SUMMARY | 2024-01-29 09:53 | XMS_ITS | Continuity of Care Document ---
Author Organization [facility] Address [address] [place] [address] Phone Care Team Providers Care Director Client Services Name Role Phone Osvaldo Gregg Unavailable Unavailable Advance Directives Directive Yes / No Effective Date File Name No Information Encounters Encounter Description Practice Location Reason(s) For Visit Diagnoses Date Provider Providers Copied on Encounter [facility], [id number] [place] [address] [address], [place], [place], [id number], [place] tel:[phone] [facility] No Information 0 [phone] Bernardsy Eddariel. [address] , [address], [place], [address], [place]. tel:[phone] Family History Family Member Type Diagnosis Age At Onset No Information Payers Payer name Insurance type Covered green party ID Authoriza tion(s) No Information Social [...]
== END 2024-01-25 21:57 | disposition home or self-care (01) ==
PROVIDERS: Emergency Provider Emergency Medicine; PCP Family Medicine
DX: F29 Unspecified psychosis not due to a substance or known physiological condition (principal); F15.10 Other stimulant abuse, uncomplicated; Z11.52 Encounter for screening for COVID-19; F17.200 Nicotine dependence, unspecified, uncomplicated
CPT/HCPCS: 36415; 70450; 80053; 80143; 80179; 80307; 81003; 82077; 84443; 85025; 87637; 99284; A9270

== ENCOUNTER 2024-09-28 15:47 | Emergency (ER) | payer OTHER, SELFPAY ==
--- NOTE | ~2024-09-28 | XR_ITS ---
HISTORY: RT post elbow pain 2.5 weeks, fell hit on bed frame COMPARISON: None TECHNIQUE: 3 views of the right elbow were performed FINDINGS: No acute fracture is identified. No elevation of the anterior or posterior fat pads are identified to suggest a supracondylar fracture . Overlying soft tissues are unremarkable. Bone mineralization is age-appropriate. IMPRESSION: No acute fracture or dislocation. Reviewed, dictated and finalized at location A.
[2024-09-28 15:54] VITALS: BP 133/92; PULSE 80; RESP 18; TEMP 36.8; O2SAT 99
--- NOTE | 2024-09-28 16:00 | ED_ITS ---
HPI - General Adult General Chief complaint: Extremity Injury, Upper Stated complaint: Right Elbow Pain Time Seen by Provider: 09/28/24 16:00 Source: patient Mode of arrival: ambulatory Limitations: no limitations History of Present Illness HPI narrative: 53-year-old female patient presents to the [facility] with complaints of right elbow pain. Patient states about 2 and half weeks ago she fell out of bed and h it her right arm on the base of her bed. Patient states she did have a large bruise to the area. Patient states she is able to move her arm but is still very tender to the touch. Related Data Home Medications ?Medication ?Instructions ?Recorded ?Confirmed ?Last Taken ?Type No Home Medications 09/28/24 09/28/24 Unknown History Allergies Allergy/AdvReac Type Severity Reaction Status Date / Time Penicillins Allergy Mild Unknown Verified 09/28/24 16:03 ampicillin Allergy Unknown Unknown Verified 09/28/24 16:03 codeine Allergy Unknown Unknown Verified 09/28/24 16:03 Review of Systems Review of Systems: CONSTITUTIONAL: Denies fever, chills, or sweats. EYES: Denies visual changes, redness, or discharge. ENT: Denies rhinorrhea, congestion, sore throat, or otalgia. CARDIOVASCULAR: Denies chest pain, palpitations, or edema. RESPIRATORY: Denies cough or dyspnea. GASTROINTESTINAL: Denies abdominal pain, nausea, vomiting, or diarrhea. GENITOURINARY: Denies dysuria or hematuria. SKIN: Denies rash or itching. MUSCULOSKELETAL: Denies back pain, joint pain, or myalgia. Positive right elbow pain NEUROLOGIC: Denies headache, numbness, or weakness. PSYCHIATRIC: Denies anxiety or depression. [facility] Past Medical History Medical History Healthy female adult Family History Family History Grandparent Family history of kidney disease Carcinoma of colon Family history of coronary artery disease Father Hypertension Other Family history of cardiovascular disease Social History Social History Smoking status: Current every day smoker Second hand tobacco smoke exposure: Yes Alcohol intake: current Substance use type: does not use Gender identity (if verbalized by the patient): Female Comments At the time of my signature I agree with nursing past medical history, surgical, social, and family history. There is no relevant family history pertinent to the presenting complaint. Exam Narrative: GENERAL: Well-appearing, well-nourished, and in no acute distress. HEAD: Normocephalic, atraumatic. EYES: PERRLA and EOMI. ENT: Nares clear, no rhinorrhea or epistaxis. Mucous membranes moist. NECK: Supple. No lymphadenopathy CHEST: Clear to auscultation. No respiratory distress. HEART: Regular rate and rhythm. No murmur heard. Normal peripheral pulses. ABDOMEN: Soft, nontender, nondistended, normal active bowel sounds. EXTREMITIES: The R elbow is without obvious asymmetry or deformity when compared to the L elbow. Patient does have slight swelling and what appears to be some a slight hematoma that is healing noted to the distal aspect of the right elbow. No bony tenderness to palpation of the lateral or medial epicondyle, olecranon, or radial head. No epicondylar or axillary lymphadenopathy. Normal flexion, extension, supination, pronation. Normal muscle strength. Intact motor and sensation of ulnar, median, and radial nerves. SKIN: Warm, dry, no rash. NEURO: No focal deficits. Alert and oriented x3. Course Course Level of Care: Express Care Visit Vital Signs Vital signs: Vital Signs Temperature 36.8 C 09/28/24 15:54 Pulse Rate 80 09/28/24 15:54 Respiratory Rate 18 09/28/24 15:54 Blood Pressure 133/92 H 09/28/24 15:54 Pulse Oximetry 99 09/28/24 15:54 Oxygen Delivery Room Air 09/28/24 15:54 Temperature 36.8 C 09/28/24 15:54 Pulse Rate 80 09/28/24 15:54 Respiratory Rate 18 09/28/24 15:54 Blood Pressure 133/92 H 09/28/24 15:54 Pulse Oximetry 99 09/28/24 15:54 Oxygen Delivery Room Air 09/28/24 15:54 Vital signs reviewed. The patient has been informed that they may have pre-hypertension or Hypertension based on a BP reading in the department. I recommend that the patient call the primary care provider listed on their discharge instructions or a physician of their choice this week to arrange follow up for further evaluation of possible pre-hypertension or Hypertension Medical Decision Making MDM Narrative Medical decision making narrative: Plan care patient is to x-ray the right elbow to ensure that there is no acute fracture that was caused by her fall. If this is negative most likely will treat as a hematoma encourage ice, anti-inflammatories and wrapping it. Differential Diagnosis Differential Diagnosis: Differential diagnosis: Elbow strain, subluxed radial head, growth plate fracture,supracondylar fracture, subsequent compartment syndrome, posterior dislocation, anterior dislocation, radial head fracture, anterior fat pad. Vital Signs Vital Signs: Vital Signs Temperature 36.8 C 09/28/24 15:54 Pulse Rate 80 09/28/24 15:54 Respiratory Rate 18 09/28/24 15:54 Blood Pressure 133/92 H 09/28/24 15:54 Pulse Oximetry 99 09/28/24 15:54 Oxygen Delivery Room Air 09/28/24 15:54 Temperature 36.8 C 09/28/24 15:54 Pulse Rate 80 09/28/24 15:54 Respiratory Rate 18 09/28/24 15:54 Blood Pressure 133/92 H 09/28/24 15:54 Pulse Oximetry 99 09/28/24 15:54 Oxygen Delivery Room Air 09/28/24 15:54 Vital signs reviewed Imaging Data Radiologist's impression: [facility] [address] [place] [address] XRay Report Signed Patient: Jackie Herbert : 1970 MR#: [id number] Age: 53 Acct:[id number] Loc: [facility] ADM Date: 09/28/24Attending Dr: Ordering Physician: Nikki Méndez APRN Date of Service: 09/28/24 Procedure(s): XR elbow RT min 3V Accession Number(s): [id number] cc: TOBACCO STRIPPING MACHINE OPERATOR PHYSICIAN; Nikki Méndez APRN~ HISTORY: RT post elbow pain 2.5 weeks, fell hit on bed frame COMPARISON: None TECHNIQUE: 3 views of the right elbow were performed FINDINGS: No acute fracture is identified. No elevation of the anterior or posterior fat pads are identified to suggest a supracondylar fracture. Overlying soft tissues are unremarkable. Bone mineralization is age-appropriate. IMPRESSION: No acute fracture or dislocation. Reviewed, dictated and finalized at location A. Critical Care Time Critical Care Time Critical Care Time: No Discharge Plan Discharge Clinical Impression: Hematoma of right elbow Patient Disposition: Home Condition: Stable Instructions: Antibiotic Form, Hematoma (ED), Bone Bruise (ED) Additional Instructions: Ice to the area 20-30 minutes 4-6 times a day Elevate above heart Elastic wrap or orthopedic splint as directed for comfort for the next 5-7 days Tylenol for lesser pain Ibuprofen regularly for the next 2-3 days for the inflammation Follow up with your primary care provider if the condition is not improving within 1 week or sooner if the Condition worsens with numbness, tingling, decrease sensation with weakness to seek ER. Patient Language: Bulgarian Prescriptions: No Action No Home Medications Follow-up/Referrals: PHYSICIAN,TOBACCO STRIPPING MACHINE OPERATOR [Primary Care Provider] - Time of Disposition: 16:34
== END 2024-09-28 16:40 | disposition home or self-care (01) ==
PROVIDERS: Emergency Provider Nurse Practitioner Family
DX: S50.01XA Contusion of right elbow, initial encounter (principal); W06.XXXA Fall from bed, initial encounter; F17.200 Nicotine dependence, unspecified, uncomplicated
CPT/HCPCS: 73080; 99213; G0463

== ENCOUNTER 2024-12-06 18:59 | Emergency (ER) | payer SELFPAY ==
--- OUTSIDE RECORDS SUMMARY | 1999-03-22 04:30 | XMS_ITS | Continuity of Care Document ---
Author Organization [facility] Address [address] [facility] [address] [place] [address] Phone Care Team Providers Care Sign Maker Name Role Phone Osvaldo Gregg Unavailable Unavailable Advance Directives Directive Yes / No Effective Date File Name No Information Encounters Encounter Description Practice Location Reason(s) For Visit Diagnoses Date Provider Providers Copied on Encounter [facility], [id number] [place] [address] [address], [place], [place], [id number], [place] tel:[phone] [facility] No Information [phone] Bernardsy Eddariel. [address] , [address], [place], [address], [place]. tel:[phone] Family History Family Member Type Diagnosis Age At Onset No Information Payers Payer name Insurance type Covered libertarian ID Authoriza tion(s) No Information Social History Type Description Quantity Date Captured Comments Sex Female Smoking Status No Information Chief Complaint And Reason For Visit No Information Reason For Referral Reason For Referral No Information History Of Present Illness Encounter Date Complaint History Of Prese nt Illness No Information Functional Status Date Functional Assessmen t No Information Instructions Date Instruction Additional Infor mation No Information Assessments Type Assessment Date No Information Patient Care Teams Name Effective Dates (start - stop) Status Members No Information
--- NOTE | ~2024-12-06 | XR_ITS ---
Examination: XR ankle LT min 3V, XR tibia fibula LT 2V Clinical History: fall from truck Comparison: None Technique: 2 views left tibia fibula, 3 views left ankle Findings/impression: Left tibia-fibula: 1. No fracture. Left ankle: 1. No fracture or dislocation left ankle. Reviewed, dictated and finalized at location R.
[2024-12-06 19:08] VITALS: BP 133/95; PULSE 79; RESP 18; TEMP 36.6; O2SAT 99
--- NOTE | 2024-12-06 19:23 | ED_ITS ---
HPI - Extremity Injury (Lower) General Chief Complaint: Extremity Injury, Lower Stated Complaint: left leg injury Time Seen by Provider: 12/06/24 19:03 Source: patient and family Mode of arrival: ambulatory Limitations: no limitations History of Present Illness HPI Narrative: this is a 54-year-old female no significant past medical history presens the ED for left leg pain. 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 She has been able ambulate since then. Family states that they felt her bruising noticed a knot and they were concerned that there is potentially a DVT prompting them to come to ED for further evaluation. Patient denies numbness, tingling, chest pain, shortness of breath. Related Data Home Medications ?Medication ?Instructions ?Recorded ?Confirmed ?Last Taken ?Type No Home Medications 09/28/24 09/28/24 U nknown History Allergies Allergy/AdvReac Type Severity Reaction Status Date / Time Penicillins Allergy Mild Unknown Verified 09/28/24 16:03 ampicillin Allergy Unknown Unknown Verified 09/28/24 16:03 codeine Allergy Unknown Unknown Verified 09/28/24 16:03 Review of Systems Review of Systems: Gen.: Denies fevers or chills Eyes: Denies eye pain or visual change ENT: Denies congestion Respiratory: Denies shortness of breath or cough CV: Denies chest pain or palpitations GI: Denies abdominal pain nausea, emesis or diarrhea denies burning, urgency, frequency or hematuria Musculoskeletal: As per HPI Neuro: Denies numbness, tingling, weakness or focal weakness Skin: Denies rash Except as documented, all other systems reviewed and negative [facility] Past Medical History Medical History Healthy female adult Family History Family History Grandparent Family history of kidney disease Carcinoma of colon Family history of coronary artery disease Father Hypertension Other Family history of cardiovascular disease Social History Social History Smoking status: Current every day smoker Second hand tobacco smoke exposure: Yes Alcohol intake: current Substance use type: does not use Gender identity (if verbalized by the patient): Female Exam Narrative: APPEARANCE: No acute distress, nontoxic, resting in bed HEENT: Normocephalic, atraumatic, OMM RESPIRATORY: No respiratory distress CARDIOVASCULAR: Appears well perfused ABDOMINAL: Nondistended MUSCULOSKELETAl: Moves all extremities. No obvious deformities. tenderness palpation over the the distal medial left lower leg with an associated contu jasen. No appreciable swelling distal to this. There is also some tenderness to the medial aspect of the left calcaneus. NEURO: Awake and alert. SKIN:: Warm, dry. No rashes lesions or abrasions PSYCHIATRIC: Normal affect/mood, Course Vital Signs Vital signs: Vital Signs Temperature 97.9 F 12/06/24 19:08 Pulse Rate 79 12/06/24 19:08 Respiratory Rate 18 12/06/24 19:08 Blood Pressure 133/95 H 12/06/24 19:08 Pulse Oximetry 99 12/06/24 19:08 Oxygen Delivery Room Air 12/06/24 19:08 Temperature 97.9 F 12/06/24 19:08 Pulse Rate 79 12/06/24 19:08 Respiratory Rate 18 12/06/24 19:08 Blood Pressure 133/95 H 12/06/24 19:08 Pulse Oximetry 99 12/06/24 19:08 Oxygen Delivery Room Air 12/06/24 19:08 MDM - Extremity Injury (Lower) MDM Narrative Medical decision making narrative: 54-year-old female presenting for left ankle pain. On initial evaluation, patient was in acute distress, afebrile and hemodynamically stable. She did have a contusion with tenderness over the left medial lower leg. neurovascularly intact distally. X-ray showed no acute fractures. Patient was educated on taking Tylenol and ibuprofen for her contusion and sprain. She was educated on rice therapy. She was advised follow-up with family medicine for re-evaluation. Patient and family are agreeable to this plan. Given strict return precautions. Differential Diagnosis Differential diagnosis: Likely ankle sprain and strain, ankle fracture and other ( Sprain, strain, contusion) Imaging Data Attestation: I personally reviewed and interpreted this imaging study as follows: My impression: tibia/ fibula x-ray: No fractures Ankle x-ray: No fractures Discharge Plan Discharge Clinical Impression: Ankle sprain and strain Contusion of left leg Qualifiers: Encounter type: initial encounter Qualified Code(s): S80.12XA - Contusion of left lower leg, initial encounter Patient Disposition: Home Condition: Stable Instructions: Antibiotic Form, Ankle Sprain (ED), Contusion in Adults (ED) Additional Instructions: X-rays showed no evidence of fractures. You likely have a contusion. Apply ice 15 minutes on 15 minutes off. He may take Tylenol and ibuprofen for the pain. Follow up with Dr. Cartagena, family medicine, in the next week for reevaluation if needed. Return to the ED for new or worsening symptoms. Patient Language: Maori Prescriptions: No Action No Home Medications Follow-up/Referrals: Jaspal Cartagena MD [Physician, Family Practice] PHYSICIAN,MOVIE THEATER USHER [Non-Staff, Internal Medicine]
--- OUTSIDE RECORDS SUMMARY | 2024-12-06 19:40 | XMS_ITS | Patient Health Record ---
Author Organization [facility] Address [address] [facility] [address] [place] [address] Care Team Providers Care Comic Artist Name Role Phone FredEvens Unavailable [phone] Reason For Referral No Information Plan Of Treatment No Information
[2024-12-06 20:13] VITALS: BP 130/90; PULSE 83; RESP 17; O2SAT 100
[2024-12-06 20:14] VITALS: BP 130/90; PULSE 83; RESP 17; O2SAT 100
== END 2024-12-06 20:15 | disposition home or self-care (01) ==
PROVIDERS: Emergency Provider Student in an Organized Health Care Education/Training Program; PCP Nurse Practitioner Family
DX: S93.402A Sprain of unspecified ligament of left ankle, initial encounter (principal); S80.12XA Contusion of left lower leg, initial encounter; W17.89XA Other fall from one level to another, initial encounter; F17.200 Nicotine dependence, unspecified, uncomplicated
CPT/HCPCS: 73590; 73610; 99284